=== PATIENT | male | born 1950 | race Caucasian/White ===

== ENCOUNTER 2023-11-26 07:24 | Emergency (ER) | payer MEDICAID, OTHER ==
[~2023-11-26] VITALS: Ht 177.8 cm; Wt 75.0 kg
[2023-11-26 07:29] VITALS: O2SAT 99
[2023-11-26 08:11] LABS: BASOPHILS % 0.4 % (0.0-2.0); EOSINOPHILS % 1.1 % (0.0-5.0); HEMATOCRIT. 41.1 % (42.0-52.0); HEMOGLOBIN. 13.9 g/dL (14.0-18.0); LYMPHOCYTES % 20.4 % (20.0-50.0); MEAN CORPUSCULAR HEMOGLOBIN 30.8 pg (28.0-32.0); MEAN CORPUSCULAR HGB CONC 33.9 g/dL (31.0-37.0); MEAN CORPUSCULAR VOLUME 90.9 fL (80.0-94.0); MEAN PLATELET VOLUME 7.3 fl (7.4-10.4); MONOCYTES % 8.6 % (2.0-8.0); NEUTROPHILS % 69.5 % (40.0-76.0); PLATELET 267 x1000/uL (130-400); RED BLOOD CELL COUNT 4.52 mill/uL (4.7-6.1); RED CELL DISTRIBUTION WIDTH 12.4 % (11.6-14.6); WHITE BLOOD COUNT 6.8 x1000/uL (4.5-11.0)
[2023-11-26 08:19] LABS: CHLORIDE 96 mEq/L (98-107); POTASSIUM 3.7 mEq/L (3.5-5.1); SODIUM 127 mEq/L (136-145)
[2023-11-26 08:20] LABS: CARBON DIOXIDE 27 mEq/L (21-32)
[2023-11-26 08:21] LABS: CALCIUM 9.2 mg/dL (8.7-10.4)
[2023-11-26 08:25] LABS: CREATININE 0.8 mg/dL (0.6-1.3); GLUCOSE 116 mg/dL (70-105); UREA NITROGEN BLOOD 10 mg/dL (9-23)
[2023-11-26 08:28] LABS: TROPONIN I HIGH SENSITIVITY < 4 ng/L (3.0-53)
[2023-11-26] MEDS: SODIUM CHLORIDE 0.9% 1,000 ML IV ONE (09:38)
[2023-11-26 11:29] VITALS: BP 129/69; PULSE 64; RESP 18; TEMP 37.11408; O2SAT 99
== END 2023-11-26 12:07 | disposition short-term general hospital (02) ==
LOC: ER 07:24 → CANBEDREQ 10:26 → ER 12:07
DX: R55 Syncope and collapse (principal); I10 Essential (primary) hypertension; Z88.0 Allergy status to penicillin
CPT/HCPCS: 80048; 80320; 82962; 83880; 85025; 84484; 36415; 71045; 70450; 93005; 96360; 99285; J7030; G0480